=== PATIENT | female | born 1955 | race Two or more races ===

== ENCOUNTER 2016-10-10 16:17 | Emergency (ER) | payer MEDICAID ==
[~2016-10-10] VITALS: Ht 160 cm; Wt 74.8 kg
[~2016-10-10 16:17] MED LIST: BENA40TA7 PO; CARI-316 PO; EZET10TA38 PO; GABA-339 PO; GLIM4TAB42 PO; HYDR25TA4 PO; INSU75SU2 SC; LEVO112T4 PO
[2016-10-10 16:28] VITALS: BP 197/85
[2016-10-10 16:52] LABS: Basophils # (auto) 0 uL; Basophils % (auto) 0.7 % (0.0-2.0); CONDITION Y; Eosinophils # (auto) 0.2 uL; Eosinophils % (auto) 4.5 % (0.0-7.0); Hematocrit 30.4 % (36.0-46.0); Hemoglobin 10.5 g/dL (12.2-16.2); Lymphocytes # (auto) 1.9 uL; Mean Corpuscular Hemoglobin 31.4 pg (28.0-32.0); Mean Corpuscular Hgb Conc. 34.6 g/dL (32.0-36.0); Mean Corpuscular Volume 90.8 fL (80.0-100.0); Mean Platelet Volume 7.6 fL (7.4-10.4); Monocytes # (auto) 0.5 uL; Monocytes % (auto) 9.5 % (0.0-12.0); Neutrophils # (auto) 2.7 uL; Neutrophils % (auto) 50.3 % (37.0-80.0); Platelet Count (auto) 194 10^3/uL (140-450); Red Cell Distribution Width 12.8 % (11.6-16.0); White Blood Cell 5.4 10^3/uL (4.4-10.8)
[2016-10-10 17:19] LABS: Albumin 3.9 g/dL (3.4-5.0); BUN/Creatinine Ratio 29.1; Bilirubin, Total 1.3 mg/dL (0.2-1.0); Potassium 4.9 mmol/L (3.5-5.1); Total Protein 7.6 g/dL (6.4-8.2)
== END 2016-10-10 21:35 | disposition left against medical advice (07) ==
LOC: ER 16:26
DX: R07.9 Chest pain, unspecified (principal); Z53.21 Procedure and treatment not carried out due to patient leaving prior to being seen by health care provider
CPT/HCPCS: 36415; 80053; 84484; 85025; 93005

== ENCOUNTER 2021-04-09 16:10 | Emergency (ER) | payer MEDICAID, MEDICARE ==
[~2021-04-09] VITALS: Ht 160 cm; Wt 77.1 kg
[~2021-04-09 16:10] MED LIST changes: -BENA40TA7 PO; +BENA40TA8 PO; -CARI-316 PO; +CARI350T22 PO; +EZET10TA24 PO; -EZET10TA38 PO
[2021-04-09 16:12] VITALS: BP 187/73
[2021-04-09 22:19] LABS: Urine Bacteria FEW /hpf (None Seen); Urine Blood Negative /uL (Negative); Urine Specific Gravity 1.009 (1.001-1.035); Urine WBC <1 /hpf (0 - 5)
== END 2021-04-09 23:46 | disposition home or self-care (01) ==
LOC: ER 16:10
DX: S09.90XA Unspecified injury of head, initial encounter (principal); I10 Essential (primary) hypertension; E03.9 Hypothyroidism, unspecified; E11.9 Type 2 diabetes mellitus without complications; E78.5 Hyperlipidemia, unspecified; Z90.49 Acquired absence of other specified parts of digestive tract; Z79.899 Other long term (current) drug therapy; Z79.4 Long term (current) use of insulin; W18.39XA Other fall on same level, initial encounter; Y93.89 Activity, other specified; Y92.89 Other specified places as the place of occurrence of the external cause; Y99.8 Other external cause status
CPT/HCPCS: 70450; 72125; 81001